=== PATIENT | male | born 1985 | race Caucasian/White ===

== ENCOUNTER 2019-10-09 09:50 | Emergency (ER) | payer OTHER, SELFPAY ==
[2019-10-09 09:56] VITALS: BP 130/81; PULSE 83; RESP 16; TEMP 36.7; O2SAT 96; BMI 26.7
--- NOTE | 2019-10-09 10:04 | DI.RAD.S_ITS ---
PROCEDURE: XR FOREARM RT 2V INDICATIONS: right arm injury a week ago, now with pain with movement TECHNIQUE: 2 views of the forearm were acquired. COMPARISON: None. FINDINGS: Bones: No fractures or dislocations. No suspicious bony lesions. Soft tissues: No suspicious soft tissue calcifications or masses. IMPRESSION: Unremarkable plain films. Dictated by: Camilo Lynn M.D. on 10/09/2019 at 9:19 Approved by: Camilo Lynn M.D. on 10/09/2019 at 9:19
--- NOTE | 2019-10-09 10:13 | ED_ITS ---
HPI - Extremity Injury (Upper) General Chief Complaint: Extremity Injury, Upper Stated Complaint: R forearm hurting Time Seen by Provider: 10/09/19 10:05 Source: patient Mode of arrival: Ambulatory Limitations: no limitations History of Present Illness HPI narrative: This is a 34-year-old male who comes in with complaint of right forearm pain. Patient states a week ago he was using a chainsaw cutting through large branch when the branch came back and hit him in the mid forearm. Patient states since then he has continued to have pain which just has not resolved. He particularly has pain with twisting at the wrist. He states that didn't bruise right away he feels like 1 is starting to develop. He hasn't had any redness, warmth or signs of infection. He states that is not have any other bony pain. Does not any pain in his hand wrist or elbow. He has full range of motion. He states that the branch was sick about softball size in width. He denies any other injuries. Denies any other past medical issues. Denies any allergies to medications. Related Data Allergies Allergy/AdvReac Type Severity Reaction Status Date / Time No Known Drug Allergies Allergy Verified 10/09/19 10:02 Review of Systems Review of Systems ROS Unobtainable: All systems reviewed & are unremarkable except as noted in HPI and below Patient History Social History Smoking Status: Never smoker Smoking Status: Never smoker alcohol intake frequency: holidays/special occasions only Substance Use Type: does not use Exam Narrative Exam Narrative: GENERAL: Alert and oriented x three, well-nourished, well- appearing male in mild distress. HEENT: Head normocephalic, atraumatic, EOMI, pupils reactive, face symmetric, moist mucous membranes NECK: Supple, full range of motion EXTREMITIES: Normal range of motion, no clubbing or edema. Neurovascularly intact. Mild tender over the mid shaft of right ulna. No deformity. No ecchymosis. No swelling. No warmth or heat. No abrasions or lacerations. Patient has no other bony tenderness noted. Full range of motion. 5/5 muscle strength. Labor Standards Director equal bilaterally. NEUROLOGICAL: Cranial nerves II through XII grossly intact. Moving all extremities SKIN: Warm, dry, no petechiae, no rashes or lesions. Initial Vital Signs Initial Vital Signs: Vital Signs Temperature 98.0 F 10/09/19 09:56 Pulse Rate 83 10/09/19 09:56 Respiratory Rate 16 10/09/19 09:56 Blood Pressure 130/81 10/09/19 09:56 Pulse Oximetry 96 10/09/19 09:56 Course Orders Ordered: ED Orders 10/09/19 10:04 XR forearm RT 2V Stat Vital Signs Vital signs: Vital Signs - 8 hr 10/09/19 09:56 Temperature 98.0 F Pulse Rate 83 Respiratory Rate 16 Blood Pressure 130/81 Pulse Oximetry 96 [facility] - Extremity Injury (Upper) Imaging Data forearm xray: Radiologist's Impression: [address] [address] XRay Report Signed Patient: Vahid Lakhani CMR#: [id number] : 1985Acct:[id number] Age/Sex: 34 / MDate of Service: 10/09/19 Loc: ED Accession Number: [id number] Procedure: XR forearm RT 2V Ordering Provider: Vibha Young D.O. PROCEDURE: XR FOREARM RT 2V INDICATIONS: right arm injury a week ago, now with pain with movement TECHNIQUE: 2 views of the forearm were acquired. COMPARISON: None. FINDINGS: Bones: No fractures or dislocations. No suspicious bony lesions. Soft tissues: No suspicious soft tissue calcifications or masses. IMPRESSION: Unremarkable plain films. Dictated by: Camilo Lynn M.D. on 10/09/2019 at 9:19 Approved by: Camilo Lynn M.D. on 10/09/2019 at 9:19 [facility] Narrative Medical decision making narrative: Fracture noted on imaging. Patient likely has contusion of the bone or similar. Discussed plan for follow-up with primary care if he does not continue to improve with time. NSAIDs, rest as needed and can return if any new or worsening symptoms. Discussed with patient signs/symptoms to watch for and reasons to return. Discharge Plan Departure Patient Disposition: Home Clinical Impression: Contusion of forearm Qualifiers: Encounter type: initial encounter Laterality: right Qualified Code(s): S50.11XA - Contusion of right forearm, initial encounter Discharge Date/Time: 10/09/19 10:45 Instructions: DI for Contusion Activity Restrictions/Additional Instructions: Follow-up with primary care if your symptoms do not resolve over the next 1-2 weeks. You may continue with Tylenol and/or ibuprofen as needed for pain. You may use ice and/or heat as needed to the affected area. Return to the emergency department for new swelling, new redness, numbness, weakness, loss of sensation, rapidly worsening pain or other new or concerning symptoms.
== END 2019-10-09 10:45 | disposition home or self-care (01) ==
PROVIDERS: Emergency Provider Emergency Medicine
DX: S50.11XA Contusion of right forearm, initial encounter (principal); W20.8XXA Other cause of strike by thrown, projected or falling object, initial encounter
CPT/HCPCS: 73090; 99283

== ENCOUNTER → 2019-11-15 08:56 | Outpatient (CLI) | payer OTHER, SELFPAY ==
[2019-11-15 09:38] LABS: Add Manual Diff / Slide Review NO; Basophils Absolute Auto 0 /uL (0-100); Basophils Percent Auto 0.3 % (0-2); Eosinophils Absolute Auto 700 /uL (0-450); Eosinophils Percent Auto 11.8 % (2-4); Hematocrit 41.4 % (41-53); Hemoglobin 14.4 g/dL (13.5-17.5); Lymphocytes Absolute Auto 1500 /uL (1100-4500); Mean Corpuscular HGB Conc 34.9 % (30-36); Mean Corpuscular Hemoglobin 29.7 PG (26-34); Mean Corpuscular Volume 85.2 fL (80-100); Monocytes Absolute Auto 400 /uL (0-900); Monocytes Percent Auto 7.2 % (3-14); Neutrophils Absolute Auto 3500 /uL (1500-7000); Neutrophils Percent Auto 56.7 % (50-75); Platelet Count 177 X10^3/uL (150-400); Red Blood Cell Count 4.85 X10^6/uL (4.5-5.9); Red Cell Distribution Width 13.3 % (11.6-14.8); White Blood Cell Count 6.2 X10^3/uL (4.5-11.0)
[2019-11-15 10:08] LABS: Alanine Aminotransferase 23 IU/L (<50); Albumin 4.1 g/dL (3.5-5.0); Albumin Globulin Ratio 1.6 (1.0-2.8); Alkaline Phosphatase 59 U/L (38-126); Aspartate Aminotransferase 27 IU/L (17-59); BUN Creatinine Ratio 17.8 (6-22); Bilirubin Total 0.4 mg/dL (0.2-1.3); Blood Urea Nitrogen 16 mg/dL (9-20); Carbon Dioxide 26 mmol/L (22-32); Chloride 107 mmol/L (98-107); Cholesterol 164 mg/dL (140-199); Estimated Glomerular Filt Rate > 60.0 mL/min (>60); Globulin 2.6 g/dL (1.7-4.1); Glucose 99 mg/dL (70-100); HDL Cholesterol 64 mg/dL (40-60); HEMOLYSIS < 15 (0-50); LDL Cholesterol Calculated 84 mg/dL (<100); Potassium 4.4 mmol/L (3.4-5.1); Sodium 141 mmol/L (137-145); Total Protein 6.7 g/dL (6.3-8.2); Triglycerides 80 mg/dL (35-150)
[2019-11-15 10:39] LABS: Thyroid Stimulating Hormone 2.23 uIU/mL (0.47-4.68)
== END ==
PROVIDERS: PCP Family Medicine; Referring Provider Family Medicine; Visit Provider Family Medicine
DX: Z00.00 Encounter for general adult medical examination without abnormal findings (principal)
CPT/HCPCS: 36415; 80053; 80061; 83036; 84443; 85025

== ENCOUNTER → 2021-08-31 11:35 | Outpatient (CLI) | payer OTHER, SELFPAY ==
[2021-08-31 12:09] LABS: COVID19 -Nasal RAPID Negative (Negative)
== END ==
PROVIDERS: PCP Family Medicine; Referring Provider Physician Assistant; Visit Provider Physician Assistant
DX: Z20.822 Contact with and (suspected) exposure to COVID-19 (principal)
CPT/HCPCS: 87635

== ENCOUNTER → 2021-10-11 09:14 | Outpatient (CLI) | payer OTHER, SELFPAY ==
--- NOTE | 2021-10-11 09:48 | DI.RAD.S_ITS ---
PROCEDURE: XR ANKLE RT MIN 3V INDICATIONS: right ankle pain TECHNIQUE: 3 views of the ankle were acquired. COMPARISON: None. FINDINGS: Bones: Well corticated osseous densities visualized adjacent to the lateral aspect of the distal fibular metaphysis as well as the distal fibular tip. Ankle mortise is normally aligned. No suspicious bony lesions. Soft tissues: No tibiotalar joint effusion. Achilles tendon appears normal. 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 Dictated by: Paul Tena [facility] Interpreted: Mike Luevano MD on 10/11/2021 at 10:07 Transcribed by: CARMEN on 10/11/2021 at 10:15 Approved by: Mike Luevano M.D. on 10/11/2021 at 11:05
[2021-10-11 10:16] LABS: Add Manual Diff / Slide Review NO; Basophils Absolute Auto 0 /uL (0-100); Basophils Percent Auto 0.4 % (0-2); Eosinophils Absolute Auto 400 /uL (0-450); Eosinophils Percent Auto 7.1 % (2-4); Hematocrit 45.2 % (41-53); Hemoglobin 15.6 g/dL (13.5-17.5); Lymphocytes Absolute Auto 1800 /uL (1100-4500); Lymphocytes Percent Auto 29.5 % (25-40); Mean Corpuscular HGB Conc 34.5 % (30-36); Mean Corpuscular Hemoglobin 29.4 PG (26-34); Mean Corpuscular Volume 85.4 fL (80-100); Monocytes Absolute Auto 400 /uL (0-900); Monocytes Percent Auto 6.3 % (3-14); Neutrophils Absolute Auto 3500 /uL (1500-7000); Neutrophils Percent Auto 56.7 % (50-75); Platelet Count 189 X10^3/uL (150-400); Red Blood Cell Count 5.29 X10^6/uL (4.5-5.9); Red Cell Distribution Width 13.5 % (11.6-14.8); White Blood Cell Count 6.2 X10^3/uL (4.5-11.0)
[2021-10-11 10:25] LABS: Alanine Aminotransferase 28 IU/L (<50); Albumin 4.5 g/dL (3.5-5.0); Albumin Globulin Ratio 1.6 (1.0-2.8); Alkaline Phosphatase 52 U/L (38-126); Aspartate Aminotransferase 30 IU/L (17-59); BUN Creatinine Ratio 18.5 (6-22); Bilirubin Total 0.5 mg/dL (0.2-1.3); Blood Urea Nitrogen 17 mg/dL (9-20); Carbon Dioxide 27 mmol/L (22-32); Chloride 108 mmol/L (98-107); Cholesterol 208 mg/dL (140-199); Estimated Glomerular Filt Rate > 60.0 mL/min (>60); Globulin 2.9 g/dL (1.7-4.1); Glucose 103 mg/dL (70-100); HDL Cholesterol 73 mg/dL (40-60); HEMOLYSIS < 15 (0-50); LDL Cholesterol Calculated 107 mg/dL (<100); Potassium 3.9 mmol/L (3.4-5.1); Sodium 140 mmol/L (137-145); Total Protein 7.4 g/dL (6.3-8.2); Triglycerides 142 mg/dL (35-150)
[2021-10-11 10:56] LABS: TSH w/ Reflex to FT4 2.57 uIU/mL (0.47-4.68)
[2021-10-18 15:37] LABS: Percent Free Testosterone 4.47 % (1.50-4.20); Testosterone Total 375.8 ng/dL (264.0-916.0)
== END ==
PROVIDERS: PCP Family Medicine; Referring Provider Family Medicine; Visit Provider Family Medicine
DX: I10 Essential (primary) hypertension (principal); Z00.00 Encounter for general adult medical examination without abnormal findings; G89.29 Other chronic pain; M25.571 Pain in right ankle and joints of right foot
CPT/HCPCS: 36415; 73610; 80053; 80061; 84402; 84403; 84443; 85025

== ENCOUNTER 2021-11-09 08:15 | Outpatient (RCR) | payer OTHER, SELFPAY ==
--- NOTE | 2021-10-21 17:07 | PT.OIE ---
Current Diagnoses Pain in right ankle and joints of right foot (10/21/21) Abnormal posture (10/21/21) Past Medical History (Last Reviewed 09/27/21 @ 17:31 by Marc Hagen DO) Allergic rhinitis Ankle pain (~2001) Chicken pox (~1988) Hypertension Right ankle pain Well adult Well adult exam Rinard teeth removed (~1999) Past Surgical History (This Medical Record has been edited. Action required.) Anesthesia Broken ankle (~2001) Rinard teeth removed (~1999) Visit Care Team Role Provider Type Marc Hagen DO Attending Provider Physician Family Provider Primary Care Provider Referring Provider Specialty: [facility] Address: [address] [place] [address] Email: [email or web address] Physical Therapy Initial Evaluation PT-OP-A Visit Information Start: 10/19/21 18:46 Freq: Status: Active Protocol: Document 10/21/21 09:03 LRN (Rec: 10/21/21 16:30 LRN [id number]) Out-Patient Physical Therapy Visit Information Visit Information Visit Type Initial Evaluation Visit Start Time 09:03 Visit Stop Time 09:53 Total Visit Minutes 50 Visit Number 1 Evaluation Information Evaluation Date 10/21/21 Precautions Precautions Chronic R ankle pain from fx 2001. Medication controlled anxiety. PT-OP-B Current Condition Start: 10/19/21 18:46 Freq: Status: Active Protocol: Document 10/21/21 09:03 LRN (Rec: 10/21/21 16:30 LRN [id number]) Current Condition History of Current Condition Onset Date 2006 Current Complaints Chronic constant R ankle pain limiting function History of Current Condition Initial fx of R Talus and Lateral Malleolus in 2001 with 3 total pins with what sounds like Open reduction and external fixation. Pt had pins removed but didn't feel he had return to prior painfree function. In 2005 he had bone spurs removed with good relief until return of pain in 2006. He has had chronic R ankle pain, but is starting to limit his ability to squat and walk and he is now reporting recent onset of L ankle pain. He has had 7 days of limiting pain after squatting activity. Prior Treatments and Tests Xray 10/11/21: Ankle mortise normally aligned. 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 2005 Bone spurs removed in R ankle. Injections of collagen and sugar mix that the pt states didn't make a big difference. Future Testing and Treatments Planned None. Treatment Goals Patient/Caregiver Goals Pt goal: to decrease pain (3/ 10) with gait and not have lingering pain with squatting. Pt agreeable to a goal of no pain at rest and being placed on a home exercise program. Prior Functional Status Baseline Function- ADL's Independent Baseline Function- Mobility Independent Baseline Function- Work/School Pain with standing on boat on sea. Baseline Function- Recreation/Hobbies Not a runner. 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 Able to crawl around boats to assess. Current Functional Impairments (Reported) Functional Limitations- ADL's Limited in ability to squat Functional Limitations- Mobility/Gait Decreased walking tolerance Functional Limitations- Work/School Limited with ability to squat and crawl around boats due to R ankle pain. R ankle pain constant. 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 and no definite acute fracture PT-OP-C Subjective Start: 10/19/21 18:46 Freq: Status: Active Protocol: Document 10/21/21 09:03 LRN (Rec: 10/21/21 16:30 LRN [id number]) Patient Questionnaires Foot & Ankle Ability Measure- ADL and Sports FAAM-ADL Score 49 FAAM-ADL Impairment 40 to 59% Impaired (Score 33- 49) FAAM-Sport Score 12 FAAM-Sport Impairment 40 to 59% Impaired (Score 12- 18) Lower Extremity Functional Scale LEFS Score 34 LEFS Impairment 40 to 59% Impaired (Score 32- 47) OP-PT Pain Assessment Pain Assessment Grid Paper Pain Assessment Grid Completed Yes Location R ankle Pain Location Details Around R ankle at level of Malleolus Intensity 7 Scale Used Numeric (0 - 10) Description Aching Frequency Constant Pain Aggravating Factors Activity,Walking Other Pain Aggravating Factors Squatting PT-OP-D Balance Start: 10/19/21 18:46 Freq: Status: Active Protocol: Document 10/21/21 09:03 LRN (Rec: 10/21/21 16:30 LRN [id number]) Balance Tests Single Limb Standing Single Limb- Right 60 (hands across chest, barefoot) Single Limb- Left 40 (hands across chest, barefoot) PT-OP-G Mobility & Gait Start: 10/19/21 18:46 Freq: Status: Active Protocol: Document 10/21/21 09:03 LRN (Rec: 10/21/21 16:30 LRN [id number]) OP Gait Assessment Gait Gait Assistance Required: Independent Able to Maintain Weight Bearing Status Yes During Gait Assistive Devices Assistive Device None PT-OP-H Neuro Start: 10/19/21 18:46 Freq: Status: Active Protocol: Document 10/21/21 09:03 LRN (Rec: 10/21/21 16:30 LRN [id number]) Sensation Evaluation Gross Sensation Gross Sensation WNL Muscle Tone Tone Assessment R ankle dorsiflexors Flexor Tone Description Moderate Hypertonicity PT-OP-J Posture/Palpation/Skin Start: 10/19/21 18:46 Freq: Status: Active Protocol: Document 10/21/21 09:03 LRN (Rec: 10/21/21 16:30 LRN [id number]) Posture Evaluation Position Standing Head/C-Spine Posture Forward Head L-Spine Posture Increased Lordosis Pelvis Posture (L) Rotated Anterior Knee Posture (R) Genu Recurvatum Ankle/Foot Posture (R) Dorsiflexed,(L) Pronated,( R) Pronated,(L) Calcaneal Inversion,(R) Calcaneal Inversion Foot Arch (R) Medium Arch,(L) Low Arch Comments Posture Comments Well developed calves bilaterally. Moderately larger R ankle jt compared to L ankle. PT-OP-K Range of Motion Start: 10/19/21 18:46 Freq: Status: Active Protocol: Document 10/21/21 09:03 LRN (Rec: 10/21/21 16:30 LRN [id number]) Knee Goniometric Range of Motion Knee Right Knee ROM WFL No Patient Position Supine Hyper-Extension Active 4 Left Knee ROM WFL Yes Patient Position Supine Hyper-Extension Active 2 Ankle and Foot Goniometric Range of Motion Ankle and Foot Right Active Ankle/Foot ROM WFL No Testing Position Supine Dorsiflexion with Knee Extended 7 Plantarflexion 66 Inversion 20 Eversion 17 Left Active Ankle/Foot ROM WFL Yes Testing Position Supine Dorsiflexion with Knee Extended 5 Plantarflexion 65 Inversion 20 Eversion 20 PT-OP-L Special Tests Start: 10/19/21 18:46 Freq: Status: Active Protocol: Document 10/21/21 09:03 LRN (Rec: 10/21/21 16:38 LRN [id number]) Special Tests Foot/Ankle Special Tests Anterior Draw Test Results R ankle: Negative for pain Comments Hyper mobility noted. PT-OP-M Strength Start: 10/19/21 18:46 Freq: Status: Active Protocol: Document 10/21/21 09:03 LRN (Rec: 10/21/21 16:30 LRN [id number]) Knee Strength Knee Manual Muscle Testing Right Flexion (S2) 5 Normal Extension (L3) 5 Normal Comments R knee pops with resisted knee extension. Left Flexion (S2) 5 Normal Extension (L3) 5 Normal Ankle/Foot Strength Ankle and Foot Manual Muscle Testing Right Dorsiflexion (L4) 5 Normal Plantarflexion (S1) 5 Normal Inversion 5 Normal Eversion (S1) 5 Normal Comments Pt demonstrates popping at R foot with stretch into inversion at ~Cuboid/ metatarsal joint. Left Dorsiflexion (L4) 5 Normal Plantarflexion (S1) 5 Normal Inversion 5 Normal Eversion (S1) 5 Normal PT-OP-Q Treatments Start: 10/19/21 18:46 Freq: Status: Active Protocol: Document 10/21/21 09:03 LRN (Rec: 10/21/21 16:38 LRN [id number]) Self-Care/Home Management Treatment Education Patient Education Home Exercise Program,Pain Management Other Education Discussed results of evaluation, goals, and plan of care (POC). Pt agreeable to goals and POC. Educated pt in pain management technique with description of RICE technique. Briefly described/educated pt in fig 8 wrap and discussed use of ice at home and at work. Activities Self-Care/Home Management Activities Issued Lev 4 TBand for R ankle distraction to be used for brief periods to relieve pain only. Pt was shown and given verbal instruction in how to use TBand around the ankle to apply traction, with precaution warning to use for brief period due to good mobility at ankle. PT-OP-T Assessment and Plan Start: 10/19/21 18:46 Freq: Status: Active Protocol: Document 10/21/21 09:03 LRN (Rec: 10/21/21 16:30 LRN [id number]) Physical Therapy Assessment Rehab Potential Rehabilitation Potential Fair Evaluation Complexity Number of Personal Factors/Comorbidities 1-2 Number of Body Systems Impaired 4 or More Clinical Presentation at Evaluation Evolving Impairments Impairments Activity Tolerance,Gait,Pain, Posture,ROM,Soft Tissue Mobility,Tone Goals Three Impairment Decreased function (difficulty squatting and walking due to pain) Impairment Pain with squatting lingering for a week with pain 7/10. Pain with walking rated 7/10. Ankle AROM )degrees): Short Term Goal (STG) Normalize R ankle AROM (in degrees: EV: 17 R, 20 L; DF 7 R, 5 L, PF 66 R, 65 L) STG Duration 12/06/21 Nursing Home Goal (LTG) Stabilize R ankle with improved ability to squat and walk with pain no greater than 3/10. LTG Duration 12/20/21 Two Impairment R ankle pain (3-7/10) Short Term Goal (STG) Pt will have periods of no pain. STG Duration 12/06/21 Nursing Home Goal (LTG) Decrease R ankle pain to no greater than 3/10. LTG Duration 12/20/21 One Impairment Lacks appropriate self care HEP Short Term Goal (STG) Pt educated in self care pain management techniques ( contrast baths, ice, compression wrapping) STG Duration 10/29/21 Land Economist Goal (LTG) Pt will be independent with a self care HEP. LTG Duration 12/20/21 Assessment Summary Assessment Pt presents with mechanical and soft tissue dysfunction of the R ankle with postural changes affecting the ankle/ knee/hip jts with changes in lumbar spine (lordosis). The pt demonstrates flattening of the plantar arches and would benefit from wearing arch supports. I will suggest over the counter supports, and if helpful, in the future the pt may need more custom fit orthotics. The pt demonstrates some hypermobility at the R ankle and may be overstretching the ankle causing more pain. The pt's R ankle is moderately larger than the L side, possibly due to mechanical changes from his prior fracture & surgical history. He has increased tone of his ankle dorsiflexors, possible due to response of his chronic pain. The pt has had chronic pain for quite sometime; therefore he is expected to need and extended rehabilitation time. The pt's rehabilitation may be more focused on progressing a home program due to financial concerns. The pt will benefit from skilled physical therapy to work towards achieving the above stated goals. Physical Therapy Plan Frequency and Duration Frequency of Treatment 2x/Week Plan of Care Start Date 10/21/21 Plan of Care End Date 12/20/21 Therapeutic Interventions Therapeutic Interventions Gait Training,Home Exercise Program,Joint Mobilizations, Manual Therapy,Neuromuscular Re-education,Patient/Caregiver Education,Self-Care/Home Management,Soft Tissue Mobilization,Taping, Therapeutic Exercises Modalities Cold Pack/Ice Massage,Hot Packs,Iontophoresis,Ultrasound Other Therapeutic Interventions Iontophoresis with 4mg/mL Dexamethasone with Sodium Phosphate Next Visit Focus/Plan Next Note Type Treatment Note Next Visit Plan Assess gait, assess R ankle jt mobility of talocalcaneal jt and Tarsals. Discuss focus of treatment on self nursing home program due to insurance limits of deductible /pt financial concerns. During US to R inferior lateral/? medial malleolus; briefly review pt education of pain management (issue handout of RICE & contrast bath treatment) and use of T- Band for Mortise jt distraction for pain relief. STM: R anterior tib and possible AUGUSTIN assessment & stretching. Short foot flexor strengthening and discuss use of plantar arch supports ( superfeet). Stretch for L ankle DF/PF & R ankle EV, (ankle IV norm is 35 deg's, pt has 20 deg's bilaterally, ?normal). Strengthening: R ankle EV and all positions DF/PF. JMT for R ankle EV (med> lateral calcaneal glide). Standing posture training ( decr lordosis, decr hyper ext of R knee).
--- NOTE | 2021-10-25 15:32 | PT-OP ANOTE ---
Pt notified of missed appointment and informed of his next scheduled appt 10/27/21 @ [id number] with MADELYN Ward. Pt informed of missed therapy charge rule.
--- NOTE | 2021-10-27 17:45 | PT.OTN ---
Current Diagnoses Pain in right ankle and joints of right foot (10/27/21) Abnormal posture (10/27/21) Physical Therapy Treatment Note PT-OP-A Visit Information Start: 10/19/21 18:46 Freq: Status: Active Protocol: Document 10/27/21 09:23 MA (Rec: 10/27/21 10:15 MA [id number]) Out-Patient Physical Therapy Visit Information Visit Information Visit Type Treatment Note Visit Start Time 09:28 Visit Stop Time 10:10 Total Visit Minutes 42 Visit Number 2 Number of [employer] Visits 1 Precautions Precautions Chronic R ankle pain from fx 2001. Medication controlled anxiety. PT-OP-B Current Condition Start: 10/19/21 18:46 Freq: Status: Active Protocol: Document 10/21/21 09:03 LRN (Rec: 10/21/21 16:30 LRN [id number]) Current Condition History of Current Condition Onset Date 2006 Current Complaints Chronic constant R ankle pain limiting function History of Current Condition Initial fx of R Talus and Lateral Malleolus in 2001 with 3 total pins with what sounds like Open reduction and external fixation. Pt had pins removed but didn't feel he had return to prior painfree function. In 2005 he had bone spurs removed with good relief until return of pain in 2006. He has had chronic R ankle pain, but is starting to limit his ability to squat and walk and he is now reporting recent onset of L ankle pain. He has had 7 days of limiting pain after squatting activity. Prior Treatments and Tests Xray 10/11/21: Ankle mortise normally aligned. 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 2005 Bone spurs removed in R ankle. Injections of collagen and sugar mix that the pt states didn't make a big difference. Future Testing and Treatments Planned None. Treatment Goals Patient/Caregiver Goals Pt goal: to decrease pain (3/ 10) with gait and not have lingering pain with squatting. Pt agreeable to a goal of no pain at rest and being placed on a home exercise program. Prior Functional Status Baseline Function- ADL's Independent Baseline Function- Mobility Independent Baseline Function- Work/School Pain [place]. Baseline Function- Recreation/Hobbies Not a runner. 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 Able to crawl around boats to assess. Current Functional Impairments (Reported) Functional Limitations- ADL's Limited in ability to squat Functional Limitations- Mobility/Gait Decreased walking tolerance Functional Limitations- Work/School Limited with ability to squat and crawl around boats due to R ankle pain. R ankle pain constant. 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 and no definite acute fracture PT-OP-C Subjective Start: 10/19/21 18:46 Freq: Status: Active Protocol: Document 10/27/21 09:23 MA (Rec: 10/27/21 10:15 MA [id number]) OP-PT Subjective Patient Comments Patient Comments The therapist gave me a stretchy band to point use for pointing my foot and turning it PT-OP-D Balance Start: 10/19/21 18:46 Freq: Status: Active Protocol: Document 10/21/21 09:03 LRN (Rec: 10/21/21 16:30 LRN [id number]) Balance Tests Single Limb Standing Single Limb- Right 60 (hands across chest, barefoot) Single Limb- Left 40 (hands across chest, barefoot) PT-OP-G Mobility & Gait Start: 10/19/21 18:46 Freq: Status: Active Protocol: Document 10/21/21 09:03 LRN (Rec: 10/21/21 16:30 LRN [id number]) OP Gait Assessment Gait Gait Assistance Required: Independent Able to Maintain Weight Bearing Status Yes During Gait Assistive Devices Assistive Device None PT-OP-H Neuro Start: 10/19/21 18:46 Freq: Status: Active Protocol: Document 10/21/21 09:03 LRN (Rec: 10/21/21 16:30 LRN [id number]) Sensation Evaluation Gross Sensation Gross Sensation WNL Muscle Tone Tone Assessment R ankle dorsiflexors Flexor Tone Description Moderate Hypertonicity PT-OP-J Posture/Palpation/Skin Start: 10/19/21 18:46 Freq: Status: Active Protocol: Document 10/21/21 09:03 LRN (Rec: 10/21/21 16:30 LRN [id number]) Posture Evaluation Position Standing Head/C-Spine Posture Forward Head L-Spine Posture Increased Lordosis Pelvis Posture (L) Rotated Anterior Knee Posture (R) Genu Recurvatum Ankle/Foot Posture (R) Dorsiflexed,(L) Pronated,( R) Pronated,(L) Calcaneal Inversion,(R) Calcaneal Inversion Foot Arch (R) Medium Arch,(L) Low Arch Comments Posture Comments Well developed calves bilaterally. Moderately larger R ankle jt compared to L ankle. PT-OP-K Range of Motion Start: 10/19/21 18:46 Freq: Status: Active Protocol: Document 10/21/21 09:03 LRN (Rec: 10/21/21 16:30 LRN [id number]) Knee Goniometric Range of Motion Knee Right Knee ROM WFL No Patient Position Supine Hyper-Extension Active 4 Left Knee ROM WFL Yes Patient Position Supine Hyper-Extension Active 2 Ankle and Foot Goniometric Range of Motion Ankle and Foot Right Active Ankle/Foot ROM WFL No Testing Position Supine Dorsiflexion with Knee Extended 7 Plantarflexion 66 Inversion 20 Eversion 17 Left Active Ankle/Foot ROM WFL Yes Testing Position Supine Dorsiflexion with Knee Extended 5 Plantarflexion 65 Inversion 20 Eversion 20 PT-OP-L Special Tests Start: 10/19/21 18:46 Freq: Status: Active Protocol: Document 10/21/21 09:03 LRN (Rec: 10/21/21 16:38 LRN [id number]) Special Tests Foot/Ankle Special Tests Anterior Draw Test Results R ankle: Negative for pain Comments Hyper mobility noted. PT-OP-M Strength Start: 10/19/21 18:46 Freq: Status: Active Protocol: Document 10/21/21 09:03 LRN (Rec: 10/21/21 16:30 LRN [id number]) Knee Strength Knee Manual Muscle Testing Right Flexion (S2) 5 Normal Extension (L3) 5 Normal Comments R knee pops with resisted knee extension. Left Flexion (S2) 5 Normal Extension (L3) 5 Normal Ankle/Foot Strength Ankle and Foot Manual Muscle Testing Right Dorsiflexion (L4) 5 Normal Plantarflexion (S1) 5 Normal Inversion 5 Normal Eversion (S1) 5 Normal Comments Pt demonstrates popping at R foot with stretch into inversion at ~Cuboid/ metatarsal joint. Left Dorsiflexion (L4) 5 Normal Plantarflexion (S1) 5 Normal Inversion 5 Normal Eversion (S1) 5 Normal PT-OP-Q Treatments Start: 10/19/21 18:46 Freq: Status: Active Protocol: Document 10/27/21 09:23 MA (Rec: 10/27/21 10:15 MA [id number]) Therapeutic Exercises Sitting Exercises IV/EV Sitting Exercise Name Inversion/eversion Side bilateral Resistance lvl 4 TB Reps/Minutes x15 ea Comments added to HEP PF/DF Sitting Exercise Name platar flexion/dorsifelxion Side bilateral Resistance lvl 4 TB Reps/Minutes x15 ea Comments added to HEP Standing Exercises Arch Lifts Standing Exercise Name 1. seated towel scrunch 2. arch lifts in standing Side right Reps/Minutes 5' Comments added to HEP Heel raises Side bilateral Reps/Minutes x10 Gait Training Gait Activity Gait Description Working on push off and step- thru Surface solid Comments pt walks with increased pronation and increased ER through RLE- will further assess next session Manual Therapy Treatment Soft Tissue Mobilization Peroneals Body Location R inf lat malleolus Mobilization Type Myofascial Release Intensity/Depth Moderate Body Position Prone Joint Mobilizations Talocrural Direction A/P Grade I Reps/Duration 2' Self-Care/Home Management Treatment Education Patient Education Home Exercise Program,Pain Management Other Education Added to HEP: resisted IV/EV & PF/DF, arch lifts standing and towel scrunches in seated. Dispensed contrast bath handout for pain management. Discussed arch supports in work shoes which currently have flat soles with no arch support. PT-OP-T Assessment and Plan Start: 10/19/21 18:46 Freq: Status: Active Protocol: Document 10/27/21 09:23 MA (Rec: 10/27/21 10:15 MA [id number]) Physical Therapy Assessment Goals Three Impairment Decreased function (difficulty squatting and walking due to pain) Impairment Pain with squatting lingering for a week with pain 7/10. Pain with walking rated 7/10. Ankle AROM )degrees): Short Term Goal (STG) Normalize R ankle AROM (in degrees: EV: 17 R, 20 L; DF 7 R, 5 L, PF 66 R, 65 L) STG Duration 12/06/21 Shelter Goal (LTG) Stabilize R ankle with improved ability to squat and walk with pain no greater than 3/10. LTG Duration 12/20/21 Two Impairment R ankle pain (3-7/10) Short Term Goal (STG) Pt will have periods of no pain. STG Duration 12/06/21 Mud Trucker Goal (LTG) Decrease R ankle pain to no greater than 3/10. LTG Duration 12/20/21 One Impairment Lacks appropriate self care HEP Short Term Goal (STG) Pt educated in self care pain management techniques ( contrast baths, ice, compression wrapping) STG Duration 10/29/21 Shelter Goal (LTG) Pt will be independent with a self care HEP. LTG Duration 12/20/21 Assessment Summary Assessment Pt walks with increased pronation and increased ER through RLE as compared to LLE , likely due to compensation from prior ankle fx. Worked on push off and progressed to step-through during gait. Added resisted PF, DF, IV, & EV to HEP as well as standing arch lifts and towel scrunches to improve eversion seen in standing. Pt wears flat soled shoes to work but states he does have arch supports in his work out shoes. Therapist encouraged pt to add insoles with arch support to work shoes or consider switching to a shoe with improved arch support. Pt will bring in his current insoles next session for PT to evaluate. Dispensed handout for contrast bath for improving ankle pain. Pt is not tender to palpation along anterior tibialis but does feel discomfort along peroneus longus and brevis on lateral ankle, likely due to walking with increased pronation. Pt feels popping anytime he is moving into active PF on RLE. Discussed trying more joint mobs next session to improve popping felt at [facility]. Physical Therapy Plan Frequency and Duration Frequency of Treatment 2x/Week Plan of Care Start Date 10/21/21 Plan of Care End Date 12/20/21 Therapeutic Interventions Therapeutic Interventions Gait Training,Home Exercise Program,Joint Mobilizations, Manual Therapy,Neuromuscular Re-education,Patient/Caregiver Education,Self-Care/Home Management,Soft Tissue Mobilization,Taping, Therapeutic Exercises Modalities Cold Pack/Ice Massage,Hot Packs,Iontophoresis,Ultrasound Other Therapeutic Interventions Iontophoresis with 4mg/mL Dexamethasone with Sodium Phosphate Next Visit Focus/Plan Next Note Type Treatment Note Next Visit Plan Assess pt's current insoles and discuss possibility with superfeet if not Assess R ankle jt mobility of talocalcaneal jt and Tarsals. Review HEP: IV/EV/PF/DF, arch lifts STM to peroneals Discuss focus of treatment on self half-way program due to insurance limits of deductible /pt financial concerns. During US to R inferior lateral/? medial malleolus; STM: R peroneals and possible AUGUSTIN assessment. Stretch for L ankle DF/PF & R ankle EV, (ankle IV norm is 35 deg's, pt has 20 deg's bilaterally, ?normal). JMT for R ankle EV (med> lateral calcaneal glide). Standing posture training ( decr lordosis, decr hyper ext of R knee).
--- NOTE | 2021-11-02 09:31 | PT.OTN ---
Current Diagnoses Pain in right ankle and joints of right foot (11/02/21) Abnormal posture (11/02/21) Physical Therapy Treatment Note PT-OP-A Visit Information Start: 10/19/21 18:46 Freq: Status: Active Protocol: Document 11/02/21 08:15 LRN (Rec: 11/02/21 09:31 LRN [id number]) Out-Patient Physical Therapy Visit Information Visit Information Visit Type Treatment Note Visit Start Time 08:16 Visit Stop Time 09:00 Total Visit Minutes 44 Visit Number 3 Evaluation Information Evaluation Date 10/21/21 Precautions Precautions Chronic R ankle pain from fx 2001. Medication controlled anxiety. PT-OP-B Current Condition Start: 10/19/21 18:46 Freq: Status: Active Protocol: Document 10/21/21 09:03 LRN (Rec: 10/21/21 16:30 LRN [id number]) Current Condition History of Current Condition Onset Date 2006 Current Complaints Chronic constant R ankle pain limiting function History of Current Condition Initial fx of R Talus and Lateral Malleolus in 2001 with 3 total pins with what sounds like Open reduction and external fixation. Pt had pins removed but didn't feel he had return to prior painfree function. In 2005 he had bone spurs removed with good relief until return of pain in 2006. He has had chronic R ankle pain, but is starting to limit his ability to squat and walk and he is now reporting recent onset of L ankle pain. He has had 7 days of limiting pain after squatting activity. Prior Treatments and Tests Xray 10/11/21: Ankle mortise normally aligned. 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 2005 Bone spurs removed in R ankle. Injections of collagen and sugar mix that the pt states didn't make a big difference. Future Testing and Treatments Planned None. Treatment Goals Patient/Caregiver Goals Pt goal: to decrease pain (3/ 10) with gait and not have lingering pain with squatting. Pt agreeable to a goal of no pain at rest and being placed on a home exercise program. Prior Functional Status Baseline Function- ADL's Independent Baseline Function- Mobility Independent Baseline Function- Work/School Pain with standing [place]. Baseline Function- Recreation/Hobbies Not a runner. 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 Able to crawl around boats to assess. Current Functional Impairments (Reported) Functional Limitations- ADL's Limited in ability to squat Functional Limitations- Mobility/Gait Decreased walking tolerance Functional Limitations- Work/School Limited with ability to squat and crawl around boats due to R ankle pain. R ankle pain constant. 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 Has been doing ankle ex's and standing arch lifts. m PT-OP-D Balance Start: 10/19/21 18:46 Freq: Status: Active Protocol: Document 10/21/21 09:03 LRN (Rec: 10/21/21 16:30 LRN [id number]) Balance Tests Single Limb Standing Single Limb- Right 60 (hands across chest, barefoot) Single Limb- Left 40 (hands across chest, barefoot) PT-OP-G Mobility & Gait Start: 10/19/21 18:46 Freq: Status: Active Protocol: Document 10/21/21 09:03 LRN (Rec: 10/21/21 16:30 LRN [id number]) OP Gait Assessment Gait Gait Assistance Required: Independent Able to Maintain Weight Bearing Status Yes During Gait Assistive Devices Assistive Device None PT-OP-H Neuro Start: 10/19/21 18:46 Freq: Status: Active Protocol: Document 10/21/21 09:03 LRN (Rec: 10/21/21 16:30 LRN [id number]) Sensation Evaluation Gross Sensation Gross Sensation WNL Muscle Tone Tone Assessment R ankle dorsiflexors Flexor Tone Description Moderate Hypertonicity PT-OP-J Posture/Palpation/Skin Start: 01/11/22 18:46 Freq: Status: Active Protocol: Document 10/21/21 09:03 LRN (Rec: 10/21/21 16:30 LRN [id number]) Posture Evaluation Position Standing Head/C-Spine Posture Forward Head L-Spine Posture Increased Lordosis Pelvis Posture (L) Rotated Anterior Knee Posture (R) Genu Recurvatum Ankle/Foot Posture (R) Dorsiflexed,(L) Pronated,( R) Pronated,(L) Calcaneal Inversion,(R) Calcaneal Inversion Foot Arch (R) Medium Arch,(L) Low Arch Comments Posture Comments Well developed calves bilaterally. Moderately larger R ankle jt compared to L ankle. PT-OP-K Range of Motion Start: 10/19/21 18:46 Freq: Status: Active Protocol: Document 10/21/21 09:03 LRN (Rec: 10/21/21 16:30 LRN [id number]) Knee Goniometric Range of Motion Knee Right Knee ROM WFL No Patient Position Supine Hyper-Extension Active 4 Left Knee ROM WFL Yes Patient Position Supine Hyper-Extension Active 2 Ankle and Foot Goniometric Range of Motion Ankle and Foot Right Active Ankle/Foot ROM WFL No Testing Position Supine Dorsiflexion with Knee Extended 7 Plantarflexion 66 Inversion 20 Eversion 17 Left Active Ankle/Foot ROM WFL Yes Testing Position Supine Dorsiflexion with Knee Extended 5 Plantarflexion 65 Inversion 20 Eversion 20 PT-OP-L Special Tests Start: 10/19/21 18:46 Freq: Status: Active Protocol: Document 10/21/21 09:03 LRN (Rec: 10/21/21 16:38 LRN [id number]) Special Tests Foot/Ankle Special Tests Anterior Draw Test Results R ankle: Negative for pain Comments Hyper mobility noted. PT-OP-M Strength Start: 10/19/21 18:46 Freq: Status: Active Protocol: Document 10/21/21 09:03 LRN (Rec: 10/21/21 16:30 LRN [id number]) Knee Strength Knee Manual Muscle Testing Right Flexion (S2) 5 Normal Extension (L3) 5 Normal Comments R knee pops with resisted knee extension. Left Flexion (S2) 5 Normal Extension (L3) 5 Normal Ankle/Foot Strength Ankle and Foot Manual Muscle Testing Right Dorsiflexion (L4) 5 Normal Plantarflexion (S1) 5 Normal Inversion 5 Normal Eversion (S1) 5 Normal Comments Pt demonstrates popping at R foot with stretch into inversion at ~Cuboid/ metatarsal joint. Left Dorsiflexion (L4) 5 Normal Plantarflexion (S1) 5 Normal Inversion 5 Normal Eversion (S1) 5 Normal PT-OP-Q Treatments Start: 10/19/21 18:46 Freq: Status: Active Protocol: Document 11/02/21 08:15 LRN (Rec: 11/02/21 09:31 LRN [id number]) Cardio Equipment Treadmill Duration (Minutes) 9 Speed 1.3-1.0 Incline 20 deg with bkwd walk Other Walk: bkwd, sideway, fwd, 2' each, extra time to determine max cal speed Therapeutic Exercises Sitting Exercises IV/EV Sitting Exercise Name Inversion/eversion Side bilateral Resistance lvl 4 TB Reps/Minutes x15 ea Comments I/S pt in other method of anchoring band w/opposite foot PF/DF Sitting Exercise Name platar flexion/dorsifelxion Side bilateral Resistance lvl 4 TB Reps/Minutes x15 ea Comments I/S pt in other method of anchoring band w/opposite foot Standing Exercises Soleus stretch Standing Exercise Name Standing and squat stretch Side bilateral Reps/Minutes 5' Gastroc stretch Standing Exercise Name Gastroc stretch, single and double Side bilateral Reps/Minutes 3' Arch Lifts Standing Exercise Name Quick & Long hold (10) Side right Reps/Minutes 10x uick, 5x Long hold Manual Therapy Treatment Soft Tissue Mobilization Peroneals Body Location R lower leg Mobilization Type Myofascial Release Intensity/Depth Moderate Body Position Supine Joint Mobilizations R Talocalcaneal Joint R ankle Direction lateral & medial Reps/Duration 2' Comments Increased mobility compared to left. Talocrural Joint R ankle Direction A/P Grade I Reps/Duration 2' Comments Increased mobility compared to left. Self-Care/Home Management Treatment Education Other Education Discussed & showed pt Superfeet insoles and trial of different sizes for fit. Pt felt size F would work and chose Copper type. PT-OP-T Assessment and Plan Start: 10/19/21 18:46 Freq: Status: Active Protocol: Document 11/02/21 08:15 LRN (Rec: 11/02/21 09:31 LRN [id number]) Physical Therapy Assessment Goals Three Impairment Decreased function (difficulty squatting and walking due to pain) Impairment Pain with squatting lingering for a week with pain 7/10. Pain with walking rated 7/10. Ankle AROM )degrees): Short Term Goal (STG) Normalize R ankle AROM (in degrees: EV: 17 R, 20 L; DF 7 R, 5 L, PF 66 R, 65 L) STG Duration 12/06/21 Plaster Tender Goal (LTG) Stabilize R ankle with improved ability to squat and walk with pain no greater than 3/10. LTG Duration 12/20/21 Two Impairment R ankle pain (3-7/10) Short Term Goal (STG) Pt will have periods of no pain. STG Duration 12/06/21 [facility] Goal (LTG) Decrease R ankle pain to no greater than 3/10. LTG Duration 12/20/21 One Impairment Lacks appropriate self care HEP Short Term Goal (STG) Pt educated in self care pain management techniques ( contrast baths, ice, compression wrapping) STG Duration 10/29/21 [facility] Goal (LTG) Pt will be independent with a self care HEP. LTG Duration 12/20/21 Assessment Summary Assessment Pt to research his insurance coverage and decide amount of therapy to continue. [employer] arch support provided good arch support; therefore pt plans to order online. Pt R lateral ankle pain is with bkwd walking on TM and with ankle IV strengthening, appears to be due to decreased ankle stability and mild decrease in EV AROM. Still noted, pt walks with increased pronation and increased ER through RLE as compared to LLE, possibly due to compensation and/or flattened arches. Physical Therapy Plan Frequency and Duration Frequency of Treatment 2x/Week Plan of Care Start Date 10/21/21 Plan of Care End Date 12/20/21 Next Visit Focus/Plan Next Note Type Treatment Note Next Visit Plan Assess R ankle EV AROM (to L ankle) & Issue handout for HEP : IV/EV/DF TBand ex using opposite foot to stabilize band if pt needs. Strengthen R ankle and improve ROM of R ankle EV, and L ankle PF/DF ROM (ankle IV norm is 35 deg's, pt has 20 deg's bilaterally, ?normal). Consider Guashon scaping of R lateral ankle to promote healing/stabilization, putting hold on US. US if needed and if not doing Guashon technique. Discuss focus of treatment on self [facility] program due to insurance limits of deductible /pt financial concerns. STM: possible AUGUSTIN assessment. Standing posture training ( decr lordosis, decr hyper ext of R knee).
--- NOTE | 2021-11-04 17:26 | PT.OTN ---
Current Diagnoses Pain in right ankle and joints of right foot (11/04/21) Abnormal posture (11/04/21) Physical Therapy Treatment Note PT-OP-A Visit Information Start: 10/19/21 18:46 Freq: Status: Active Protocol: Document 11/04/21 08:20 LRN (Rec: 11/04/21 09:04 LRN [id number]) Out-Patient Physical Therapy Visit Information Visit Information Visit Type Treatment Note Visit Start Time 08:20 Visit Stop Time 09:01 Total Visit Minutes 41 Visit Number 4 Evaluation Information Evaluation Date 10/21/21 Precautions Precautions Chronic R ankle pain from fx 2001. Medication controlled anxiety. PT-OP-B Current Condition Start: 10/19/21 18:46 Freq: Status: Active Protocol: Document 10/21/21 09:03 LRN (Rec: 10/21/21 16:30 LRN [id number]) Current Condition History of Current Condition Onset Date 2006 Current Complaints Chronic constant R ankle pain limiting function History of Current Condition Initial fx of R Talus and Lateral Malleolus in 2001 with 3 total pins with what sounds like Open reduction and external fixation. Pt had pins removed but didn't feel he had return to prior painfree function. In 2005 he had bone spurs removed with good relief until return of pain in 2006. He has had chronic R ankle pain, but is starting to limit his ability to squat and walk and he is now reporting recent onset of L ankle pain. He has had 7 days of limiting pain after squatting activity. Prior Treatments and Tests Xray 10/11/21: Ankle mortise normally aligned. 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 2005 Bone spurs removed in R ankle. Injections of collagen and sugar mix that the pt states didn't make a big difference. Future Testing and Treatments Planned None. Treatment Goals Patient/Caregiver Goals Pt goal: to decrease pain (3/ 10) with gait and not have lingering pain with squatting. Pt agreeable to a goal of no pain at rest and being placed on a home exercise program. Prior Functional Status Baseline Function- ADL's Independent Baseline Function- Mobility Independent Baseline Function- Work/School Pain with [place]. Baseline Function- Recreation/Hobbies Not a runner. 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 Able to crawl around boats to assess. Current Functional Impairments (Reported) Functional Limitations- ADL's Limited in ability to squat Functional Limitations- Mobility/Gait Decreased walking tolerance Functional Limitations- Work/School Limited with ability to squat and crawl around boats due to R ankle pain. R ankle pain constant. 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 PT-OP-D Balance Start: 10/19/21 18:46 Freq: Status: Active Protocol: Document 10/21/21 09:03 LRN (Rec: 10/21/21 16:30 LRN [id number]) Balance Tests Single Limb Standing Single Limb- Right 60 (hands across chest, barefoot) Single Limb- Left 40 (hands across chest, barefoot) PT-OP-G Mobility & Gait Start: 10/19/21 18:46 Freq: Status: Active Protocol: Document 10/21/21 09:03 LRN (Rec: 10/21/21 16:30 LRN [id number]) OP Gait Assessment Gait Gait Assistance Required: Independent Able to Maintain Weight Bearing Status Yes During Gait Assistive Devices Assistive Device None PT-OP-H Neuro Start: 10/19/21 18:46 Freq: Status: Active Protocol: Document 10/21/21 09:03 LRN (Rec: 10/21/21 16:30 LRN [id number]) Sensation Evaluation Gross Sensation Gross Sensation WNL Muscle Tone Tone Assessment R ankle dorsiflexors Flexor Tone Description Moderate Hypertonicity PT-OP-J Posture/Palpation/Skin Start: 10/19/21 18:46 Freq: Status: Active Protocol: Document 10/21/21 09:03 LRN (Rec: 10/21/21 16:30 LRN [id number]) Posture Evaluation Position Standing Head/C-Spine Posture Forward Head L-Spine Posture Increased Lordosis Pelvis Posture (L) Rotated Anterior Knee Posture (R) Genu Recurvatum Ankle/Foot Posture (R) Dorsiflexed,(L) Pronated,( R) Pronated,(L) Calcaneal Inversion,(R) Calcaneal Inversion Foot Arch (R) Medium Arch,(L) Low Arch Comments Posture Comments Well developed calves bilaterally. Moderately larger R ankle jt compared to L ankle. PT-OP-K Range of Motion Start: 10/19/21 18:46 Freq: Status: Active Protocol: Document 10/21/21 09:03 LRN (Rec: 10/21/21 16:30 LRN [id number]) Knee Goniometric Range of Motion Knee Right Knee ROM WFL No Patient Position Supine Hyper-Extension Active 4 Left Knee ROM WFL Yes Patient Position Supine Hyper-Extension Active 2 Ankle and Foot Goniometric Range of Motion Ankle and Foot Right Active Ankle/Foot ROM WFL No Testing Position Supine Dorsiflexion with Knee Extended 7 Plantarflexion 66 Inversion 20 Eversion 17 Left Active Ankle/Foot ROM WFL Yes Testing Position Supine Dorsiflexion with Knee Extended 5 Plantarflexion 65 Inversion 20 Eversion 20 PT-OP-L Special Tests Start: 10/19/21 18:46 Freq: Status: Active Protocol: Document 10/21/21 09:03 LRN (Rec: 10/21/21 16:38 LRN [id number]) Special Tests Foot/Ankle Special Tests Anterior Draw Test Results R ankle: Negative for pain Comments Hyper mobility noted. PT-OP-M Strength Start: 10/19/21 18:46 Freq: Status: Active Protocol: Document 10/21/21 09:03 LRN (Rec: 10/21/21 16:30 LRN [id number]) Knee Strength Knee Manual Muscle Testing Right Flexion (S2) 5 Normal Extension (L3) 5 Normal Comments R knee pops with resisted knee extension. Left Flexion (S2) 5 Normal Extension (L3) 5 Normal Ankle/Foot Strength Ankle and Foot Manual Muscle Testing Right Dorsiflexion (L4) 5 Normal Plantarflexion (S1) 5 Normal Inversion 5 Normal Eversion (S1) 5 Normal Comments Pt demonstrates popping at R foot with stretch into inversion at ~Cuboid/ metatarsal joint. Left Dorsiflexion (L4) 5 Normal Plantarflexion (S1) 5 Normal Inversion 5 Normal Eversion (S1) 5 Normal PT-OP-Q Treatments Start: 10/19/21 18:46 Freq: Status: Active Protocol: Document 11/04/21 08:20 LRN (Rec: 11/04/21 09:04 LRN [id number]) Therapeutic Exercises Sitting Exercises Big toe/toe lifts Sitting Exercise Name Toe lifts Side bilateral Reps/Minutes 30x IV/EV Sitting Exercise Name Inversion/eversion Side bilateral Resistance lvl 4 TB Reps/Minutes x15 ea Comments I/S pt in other method of anchoring band w/opposite foot PF/DF Sitting Exercise Name platar flexion/dorsifelxion Side bilateral Resistance lvl 4 TB Reps/Minutes x15 ea Comments I/S pt in other method of anchoring band w/opposite foot Standing Exercises Big toe stretch Standing Exercise Name Leg against wall to normalize ankle motion with Big Toe ext stretch Side bilateral Reps/Minutes 10' Comments Cued in sitting, changed to standing. Extra time to for best positioning Toe raises Standing Exercise Name Toe raises off 4 step Side bilateral Reps/Minutes 40+ Soleus stretch Standing Exercise Name Standing and squat stretch Side bilateral Reps/Minutes 5' Gastroc stretch Standing Exercise Name Gastroc stretch, single and double Side bilateral Reps/Minutes 3' L, 1' R Arch Lifts Standing Exercise Name Quick & Long hold (10) Side right Reps/Minutes 10x Quick, 5x Long hold Heel raises Standing Exercise Name Heel raises off 6' Step Side bilateral Reps/Minutes x10 Self-Care/Home Management Treatment Education Patient Education Home Exercise Program Activities Self-Care/Home Management Activities Issued & reviewed HEP: ankle strengthening w/TB: DF, IV, EV and standing toe/heel raises w/instructions on stair step; ankle stretching: Gastrocnemius & Soleus. PT-OP-T Assessment and Plan Start: 10/19/21 18:46 Freq: Status: Active Protocol: Document 11/04/21 08:20 LRN (Rec: 11/04/21 09:04 LRN [id number]) Physical Therapy Assessment Goals Three Impairment Decreased function (difficulty squatting and walking due to pain) Impairment Pain with squatting lingering for a week with pain 7/10. Pain with walking rated 7/10. Ankle AROM )degrees): Short Term Goal (STG) Normalize R ankle AROM (in degrees: EV: 17 R, 20 L; DF 7 R, 5 L, PF 66 R, 65 L) STG Duration 12/06/21 [facility] Goal (LTG) Stabilize R ankle with improved ability to squat and walk with pain no greater than 3/10. (11/04/21: Pt has been walking property without ankle pain). LTG Duration 12/20/21 (11/04/21: MET for walking) Two Impairment R ankle pain (3-7/10) Short Term Goal (STG) Pt will have periods of no pain. (11/04/21: No pain with most daily activities, pain onset with squatting) STG Duration 12/06/21 (11/04/21: MET GOAL) Field Agent Goal (LTG) Decrease R ankle pain to no greater than 3/10. LTG Duration 12/20/21 One Impairment Lacks appropriate self care HEP Short Term Goal (STG) Pt educated in self care pain management techniques ( contrast baths, ice, compression wrapping) STG Duration 10/29/21 (10/27/21: MET GOAL) [facility] Goal (LTG) Pt will be independent with a self care HEP. LTG Duration 12/20/21 (11/02/21: Progressed) Progress Towards Goals Progress Comments Pt not having pain at ankle except with squatting. Pt has HEP of ankle strengthening. Assessment Summary Assessment Good understanding of HEP of ankle ex's. Pt tends to roll outward at the ankles with heel raises. Pt needed review of proper form for arch lifts . Pt may be hyper or hypo mobile at R anterior/posterior gliding at talocrural joint causing pain; further MWM assessment needed. Physical Therapy Plan Frequency and Duration Frequency of Treatment 2x/Week Plan of Care Start Date 10/21/21 Plan of Care End Date 12/20/21 Next Visit Focus/Plan Next Note Type Treatment Note Next Visit Plan Assess R ankle EV AROM ( compare to L ankle). Discuss focus of treatment on self half-way program due to insurance limits of deductible (5500)/pt financial concerns. Strengthen R ankle and improve ROM of R ankle EV, and L ankle PF/DF ROM (ankle IV norm is 35 deg's, pt has 20 deg's bilaterally, ?normal). Consider Guashon scaping of R lateral ankle to promote healing/stabilization, putting hold on US. US if needed and if not doing Guashon technique. STM: possible AUGUSTIN assessment. Standing posture training ( decr lordosis, decr hyper ext of R knee).
--- NOTE | 2021-11-09 17:42 | PT.OTN ---
Current Diagnoses Pain in right ankle and joints of right foot (11/09/21) Abnormal posture (11/09/21) Physical Therapy Treatment Note PT-OP-A Visit Information Start: 10/19/21 18:46 Freq: Status: Active Protocol: Document 11/09/21 08:16 LRN (Rec: 11/09/21 10:34 LRN [id number]) Out-Patient Physical Therapy Visit Information Visit Information Visit Type Treatment Note Visit Start Time 08:16 Visit Stop Time 09:07 Total Visit Minutes 51 Visit Number 5 Evaluation Information Evaluation Date 10/21/21 Precautions Precautions Chronic R ankle pain from fx 2001. Medication controlled anxiety. PT-OP-B Current Condition Start: 10/19/21 18:46 Freq: Status: Active Protocol: Document 10/21/21 09:03 LRN (Rec: 10/21/21 16:30 LRN [id number]) Current Condition History of Current Condition Onset Date 2006 Current Complaints Chronic constant R ankle pain limiting function History of Current Condition Initial fx of R Talus and Lateral Malleolus in 2001 with 3 total pins with what sounds like Open reduction and external fixation. Pt had pins removed but didn't feel he had return to prior painfree function. In 2005 he had bone spurs removed with good relief until return of pain in 2006. He has had chronic R ankle pain, but is starting to limit his ability to squat and walk and he is now reporting recent onset of L ankle pain. He has had 7 days of limiting pain after squatting activity. Prior Treatments and Tests Xray 10/11/21: Ankle mortise normally aligned. 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 2005 Bone spurs removed in R ankle. Injections of collagen and sugar mix that the pt states didn't make a big difference. Future Testing and Treatments Planned None. Treatment Goals Patient/Caregiver Goals Pt goal: to decrease pain (3/ 10) with gait and not have lingering pain with squatting. Pt agreeable to a goal of no pain at rest and being placed on a home exercise program. Prior Functional Status Baseline Function- ADL's Independent Baseline Function- Mobility Independent Baseline Function- Work/School Pain with standing [place]. Baseline Function- Recreation/Hobbies Not a runner. 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 Able to crawl around boats to assess. Current Functional Impairments (Reported) Functional Limitations- ADL's Limited in ability to squat Functional Limitations- Mobility/Gait Decreased walking tolerance Functional Limitations- Work/School Limited with ability to squat and crawl around boats due to R ankle pain. R ankle pain constant. 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 Both ankles feel tight after all the ankle ex off the stairs. Did some squatting yesterday and didn't feel as bad as it has. Didn't have pain after squatting that lasted the day, didn't hurt at all. PT-OP-D Balance Start: 10/19/21 18:46 Freq: Status: Active Protocol: Document 10/21/21 09:03 LRN (Rec: 10/21/21 16:30 LRN [id number]) Balance Tests Single Limb Standing Single Limb- Right 60 (hands across chest, barefoot) Single Limb- Left 40 (hands across chest, barefoot) PT-OP-G Mobility & Gait Start: 10/19/21 18:46 Freq: Status: Active Protocol: Document 10/21/21 09:03 LRN (Rec: 10/21/21 16:30 LRN [id number]) OP Gait Assessment Gait Gait Assistance Required: Independent Able to Maintain Weight Bearing Status Yes During Gait Assistive Devices Assistive Device None PT-OP-H Neuro Start: 10/19/21 18:46 Freq: Status: Active Protocol: Document 10/21/21 09:03 LRN (Rec: 10/21/21 16:30 LRN [id number]) Sensation Evaluation Gross Sensation Gross Sensation WNL Muscle Tone Tone Assessment R ankle dorsiflexors Flexor Tone Description Moderate Hypertonicity PT-OP-J Posture/Palpation/Skin Start: 10/19/21 18:46 Freq: Status: Active Protocol: Document 10/21/21 09:03 LRN (Rec: 10/21/21 16:30 LRN [id number]) Posture Evaluation Position Standing Head/C-Spine Posture Forward Head L-Spine Posture Increased Lordosis Pelvis Posture (L) Rotated Anterior Knee Posture (R) Genu Recurvatum Ankle/Foot Posture (R) Dorsiflexed,(L) Pronated,( R) Pronated,(L) Calcaneal Inversion,(R) Calcaneal Inversion Foot Arch (R) Medium Arch,(L) Low Arch Comments Posture Comments Well developed calves bilaterally. Moderately larger R ankle jt compared to L ankle. PT-OP-K Range of Motion Start: 10/19/21 18:46 Freq: Status: Active Protocol: Document 11/09/21 08:16 LRN (Rec: 11/09/21 10:34 LRN [id number]) Ankle and Foot Goniometric Range of Motion Ankle and Foot Right Active Ankle/Foot ROM WFL No Testing Position Supine Dorsiflexion with Knee Flexed 10 Dorsiflexion with Knee Extended 10 Plantarflexion 63 Inversion 26 Eversion 20 Left Active Ankle/Foot ROM WFL Yes Testing Position Supine Dorsiflexion with Knee Flexed 8 Dorsiflexion with Knee Extended 7 Plantarflexion 65 Inversion 20 Eversion 20 PT-OP-L Special Tests Start: 10/19/21 18:46 Freq: Status: Active Protocol: Document 10/21/21 09:03 LRN (Rec: 10/21/21 16:38 LRN [id number]) Special Tests Foot/Ankle Special Tests Anterior Draw Test Results R ankle: Negative for pain Comments Hyper mobility noted. PT-OP-M Strength Start: 10/19/21 18:46 Freq: Status: Active Protocol: Document 10/21/21 09:03 LRN (Rec: 10/21/21 16:30 LRN [id number]) Knee Strength Knee Manual Muscle Testing Right Flexion (S2) 5 Normal Extension (L3) 5 Normal Comments R knee pops with resisted knee extension. Left Flexion (S2) 5 Normal Extension (L3) 5 Normal Ankle/Foot Strength Ankle and Foot Manual Muscle Testing Right Dorsiflexion (L4) 5 Normal Plantarflexion (S1) 5 Normal Inversion 5 Normal Eversion (S1) 5 Normal Comments Pt demonstrates popping at R foot with stretch into inversion at ~Cuboid/ metatarsal joint. Left Dorsiflexion (L4) 5 Normal Plantarflexion (S1) 5 Normal Inversion 5 Normal Eversion (S1) 5 Normal PT-OP-Q Treatments Start: 10/19/21 18:46 Freq: Status: Active Protocol: Document 11/09/21 08:16 LRN (Rec: 11/09/21 10:34 N [id number]) Cardio Equipment Treadmill Duration (Minutes) 13 Speed 2 Incline Incr deg per minute time to 10 max Other 10' fwd walk, 3' bkwd walk Therapeutic Exercises Standing Exercises Squat Standing Exercise Name Squat stretch Reps/Minutes 3' Soleus stretch Standing Exercise Name Standing and squat stretch Side bilateral Reps/Minutes 4' Gastroc stretch Standing Exercise Name Gastroc stretch, single and double Side bilateral Reps/Minutes 3' Manual Therapy Treatment Soft Tissue Mobilization Lateral R ankle Body Location Inferior to distal R Fibular head Mobilization Type Myofascial Release Intensity/Depth Superficial Body Position Sidelying Comments Guashon scraping along border of distal fibular head. Joint Mobilizations R Talocalcaneal Joint R Talocalcaneal jt Direction EV Grade II Body Position Sidelying Reps/Duration 4' Comments Stiff at joint. Stretch f/b active stretch. Talocrural Joint R Talocrural jt Direction EV Grade II Body Position Sidelying Reps/Duration 5' Comments f/b active assisted stretch Self-Care/Home Management Treatment Education Other Education Educated pt in post-guashon scraping care. PT-OP-T Assessment and Plan Start: 10/19/21 18:46 Freq: Status: Active Protocol: Document 11/09/21 08:16 LRN (Rec: 11/09/21 10:34 LRN [id number]) Physical Therapy Assessment Goals Three Impairment Decreased function (difficulty squatting and walking due to pain) Impairment Pain with squatting lingering for a week with pain 7/10. Pain with walking rated 7/10. Ankle AROM (degrees): Short Term Goal (STG) Normalize R ankle AROM ( initial R ankle AROM in degrees: EV: 17 R, 20 L; DF 7 R, 5 L, PF 66 R, 65 L). (11/09/21: Ankle AROM: EV 20 bilaterally; DF w/knee extended: 10 R, 7 L; DF w/knee flexed: 10 R, 8 L; PF: 63 R, 65 L). STG Duration 12/06/21 (11/09/21: MET GOAL, except greater mobility with DF) Food Selector Goal (LTG) Stabilize R ankle with improved ability to squat and walk with pain no greater than 3/10. (11/04/21: Pt has been walking property without ankle pain). (11/09/21: 1x squat without lingering pain the past few days and no pain with squatting after treatment). LTG Duration 12/20/21 (11/09/21: MET GOAL) Two Impairment R ankle pain (3-7/10) Short Term Goal (STG) Pt will have periods of no pain. (11/04/21: No pain with most daily activities, pain onset with squatting) STG Duration 12/06/21 (11/04/21: MET GOAL) Food Selector Goal (LTG) Decrease R ankle pain to no greater than 3/10. (11/09/21: Past 4 days pain at R ankle is 2/10.) LTG Duration 12/20/21 (11/09/21: MET GOAL) One Impairment Lacks appropriate self care HEP Short Term Goal (STG) Pt educated in self care pain management techniques ( contrast baths, ice, compression wrapping) STG Duration 10/29/21 (10/27/21: MET GOAL) [facility] Goal (LTG) Pt will be independent with a self care HEP. LTG Duration 12/20/21 (11/09/21: MET GOAL) Progress Towards Goals Progress Comments Pt R ankle pain has been decreased to daily max of 2/10 . He is able to squat without lingering pain and R ankle ROM is mostly symmetrical to the L ankle except increased mobility is demonstrated on the R with ankle DF. Assessment Summary Assessment He is able to squat x 1 without lingering pain as his ankle strength improves. Tightness is present with GS complex with increased strengthening of toe/heel raises on step. Pt had no complaints with Guashon scraping and felt stiffness relief with EV stretch to Calcaneous. Pt was able to squat at end of treatment without pain. Pt feels confident with that he is ready to be placed on his home program since his ankle is feeling good and he can squat without lingering pain. Physical Therapy Plan Discharge Physical Therapy Discharge Reasons Goals Met Discharge Comments Pt made very good progress in a short time. He is expected to improve if he can avoid overstretching his R ankle, maintain ankle strength, and support his plantar arch with a shoe insert. Thank you for your referral.
== END 2021-11-12 09:01 ==
LOC: PHYS 08:15
PROVIDERS: Family Provider Family Medicine; PCP Family Medicine; Referring Provider Family Medicine; Visit Provider Family Medicine
DX: M25.571 Pain in right ankle and joints of right foot (principal); R29.3 Abnormal posture
CPT/HCPCS: 97110; 97116; 97140; 97162; 97535

== ENCOUNTER → 2024-01-11 08:47 | Outpatient (CLI) | payer SELFPAY ==
[2024-01-11 10:20] LABS: Alanine Aminotransferase 23 IU/L (<50); Albumin 4.3 g/dL (3.5-5.0); Albumin Globulin Ratio 1.6 (1.0-2.8); Alkaline Phosphatase 61 U/L (38-126); Aspartate Aminotransferase 30 IU/L (17-59); BUN Creatinine Ratio 17.3 (6-22); Bilirubin Total 0.6 mg/dL (0.2-1.3); Blood Urea Nitrogen 18 mg/dL (9-20); Carbon Dioxide 27 mmol/L (22-32); Chloride 106 mmol/L (98-107); Cholesterol 195 mg/dL (140-199); Estimated Glomerular Filt Rate > 60 mL/min (>60); Globulin 2.7 g/dL (1.7-4.1); Glucose 92 mg/dL (70-100); HDL Cholesterol 72 mg/dL (40-60); HEMOLYSIS < 15 (0-50); LDL Cholesterol Calculated 85 mg/dL (<100); Potassium 4.4 mmol/L (3.4-5.1); Sodium 140 mmol/L (137-145); Triglycerides 191 mg/dL (35-150)
== END ==
PROVIDERS: Family Provider Family Medicine; PCP Family Medicine; Referring Provider Family Medicine; Visit Provider Family Medicine
DX: E78.5 Hyperlipidemia, unspecified (principal)
CPT/HCPCS: 36415; 80053; 80061

== ENCOUNTER 2024-06-04 07:11 | Day surgery (SDC) | payer BC, SELFPAY ==
--- NOTE | 2024-06-04 | PATH_ITS ---
[facility] Accession Number: [id number] No. of containers..01 Tissue . 01 Material submitted: . colon - RANDOM COLON . 01 Diagnosis: RANDOM COLON: Colonic mucosa with no diagnostic alterations. No active inflammation, granulomas, dysplasia, or malignancy identified. No evidence of colitis. RUST 06/06/20241456 Local . 01 Electronically signed: . Ruslan Harris MD, Pathologist NPI- [id number] . 01 Gross description: . Received in formalin with two patient identifiers and random colon biopsies, are three chino soft tissue fragments all measuring 0.3 cm in greatest dimension. Submitted in cassette A1. ([id number]) /ZACHARY 06/06/20241456 Local . 01 Pathologist provided ICD-10: Z12.11 . 01 CPT . 901831 Specimen Comment: A courtesy copy of this report has been sent to [phone] Performed at: [address] [id number], [place], [place] [id number] MD Ruslan Harris MD Phone: [phone]
[2024-06-04] MEDS: LACTATED RINGERS 1,000 ML 42 ML IV (07:35)
[2024-06-04 07:40] VITALS: BP 149/102; PULSE 93; RESP 17; TEMP 36.1; O2SAT 97
--- NOTE | 2024-06-04 08:05 | P.HP_ITS ---
History of Present Illness History of Present Illness Date Patient Seen: 06/04/24 Time Patient Seen: 08:05 Chief complaint: [facility] [place] Narrative: Reports he does have a family history for colon cancer, change in bowel habits. This will be his 1st colonoscopy [facility] Medical History Family hx of colon cancer Pterygium of left eye Encounter for surveillance of abnormal nevi Borderline hypertension Borderline hyperlipidemia Depression Right ankle pain Hypertension Well adult exam Well adult Allergic rhinitis Ankle pain (~2001) Chicken pox (~1988) Surgical History Anesthesia [place] teeth removed (~1999) Broken ankle (~2001) Family History Mother Breast cancer Social History Smoking Status: Never smoker alcohol intake: current Meds Home Medications and Allergies Home Medications Medication Instructions Recorded Confirmed Type sertraline 100 mg tablet 100 mg PO DAILY #90 tabs 01/05/24 06/04/24 Rx propylene glycol 0.6 % eye drops 1 drp EYE-LEFT BID #10 mL 04/09/24 06/04/24 Rx (Systane Balance) Allergies Allergy/AdvReac Type Severity Reaction Status Date / Time No Known Drug Allergies Allergy Verified 06/04/24 07:41 Review of Systems Review of Systems ROS: Yes All systems reviewed with the patient and are negative except as otherwise documented Exam Vital Signs (past 8 hours): - 06/04/24 07:40 Temperature 96.9 F L Pulse Rate 93 H Respiratory Rate 17 Blood Pressure 149/102 H Pulse Oximetry 97 Oxygen Delivery Method Room Air Oxygen Delivery Method Room Air Const General: cooperative, healthy appearing and comfortable Nutritional Appearance: average body habitus HENMT Head: normocephalic and atraumatic Eyes General: appearance normal, both eyes and all related structures Neck Neck: trachea midline and No JVD Chest Chest: normal inspection of the chest Resp Effort & Inspection: normal respiratory effort and able to speak in complete sentences Cardio Rate: regular rate Rhythm: regular rhythm GI Palpation: soft Skin General: turgor normal and No atrophy Neuro General: patient alert, patient awake and patient oriented x3 Cognition: normal cognition Psych Appearance: grossly normal Mental Status: mental status grossly normal Affect: normal affect Judgment: judgment good Assessment & Plan Assessment & Plan narrative: Colonoscopy for change in bowel habits and a distant family history for colon cancer. Plan: Colonoscopy with anesthesia Time-Based Coding :: [TOTAL MINUTES] spent with patient and on the chart (including review of chart, obtaining history, exam, reviewing outside data, placing orders, documenting exam and treatment plan, and counseling patient) on [DATE].
--- NOTE | 2024-06-04 08:13 | PM.OP.COLON ---
Operative Date/Time/Diagnoses Date of procedure: 06/04/24 Time of procedure: 08:13 Pre-op diagnosis: Change in bowel habit, distal family history for colon cancer Post-op diagnosis: same Procedure & Clinicians Study performed: colonoscopy with anesthesia Same procedure as scheduled: Yes Indications: Change in bowel habits and a distal family history colon cancer Surgeon: Justina Castro Procedure Notes Procedure in detail: Preop diagnosis: Change in bowel habits Postop diagnosis: Same Operative procedure: Colonoscopy with cold forceps mucosal biopsies Surgeon: Carline Castro MD Findings: Normal-appearing colon. No diverticulosis, no polyps. Procedure: Patient placed in lateral position. Rectal exam performed showing normal tone no masses. Colonoscope inserted into the rectum and advanced to ileocecal valve with minimal difficulty. Insufflation extraction of the scope and the above findings. Retroflex was included in the rectum Impression: No abnormalities found. No polyps. Random mucosal biopsies taken for history of diarrhea and change in bowel habits Plan: Repeat colonoscopy in 10 years unless otherwise indicated by change in clinical condition Specimen(s): none sent Complications: none Post-procedure Recommendations: Colonoscopy in 10 years Follow up: as needed Disposition: PACU
[2024-06-04 08:29] VITALS: BP 109/72; PULSE 75; RESP 10; TEMP 36.3; O2SAT 96
[2024-06-04 08:34] VITALS: BP 109/74; PULSE 74; RESP 10; O2SAT 97
[2024-06-04 08:39] VITALS: BP 112/74; PULSE 71; RESP 12; O2SAT 99
[2024-06-04 08:44] VITALS: BP 120/83; PULSE 72; RESP 12; TEMP 36.6; O2SAT 99
== END 2024-06-04 08:57 | disposition home or self-care (01) ==
PROVIDERS: Family Provider Family Medicine; PCP Family Medicine; Referring Provider Surgery; Visit Provider Surgery
PROC: 0DJD8ZZ Inspection of Lower Intestinal Tract, Via Natural or Artificial Opening Endoscopic (ICD-10-PCS; CPT 45378; principal; 2024-06-04 08:15)
DX: R19.4 Change in bowel habit (principal)
CPT/HCPCS: 45380; J2704

== ENCOUNTER → 2024-11-15 07:55 | Outpatient (CLI) | payer BC, SELFPAY ==
--- NOTE | 2024-11-15 07:56 | DI.CT.S_ITS ---
PROCEDURE: CT SINUS SCREEN WO CON INDICATIONS: CHRONIC PANSINUSITIS,NASAL OBST,FACIAL PRESSURE TECHNIQUE: Noncontrast 3.0 mm axial images acquired from the frontal sinuses to the mid-sella, with coronal and sagittal reformats. For radiation dose reduction, the following was used: automated exposure control, adjustment of mA and/or kV according to patient size. COMPARISON: None. FINDINGS: Image quality: Excellent. Maxillary Sinuses: Significant mucous retention cysts can be seen within the maxillary sinuses, right larger than left. There is hguh-ut-gpiencki mucosal thickening seen on both sides, right worse than left. The superior medial garza of the maxillary sinuses are demineralized. Ethmoid Air Cells: There is mild to moderate mucosal thickening within the ethmoid air cells. There is demineralization of the ethmoid air cell septations. Sphenoid Sinuses: No bony remodeling or destruction. Minimal mucosal thickening is seen anteriorly. Frontal Sinuses: No bony remodeling or destruction. Moderate mucosal thickening is seen within the inferior medial frontal sinuses. Ostiomeatal Complexes: The ostiomeatal complexes are patent, yet they are constitutionally narrowed, with bilateral Aman cells. The ostiomeatal complexes are further narrowed by soft tissue thickening, with near complete opacification of the left ostiomeatal complex. The ostiomeatal complexes are demineralized. Miscellaneous: Visualized intra-orbital contents are normal. Left-sided deep bullosa can be seen. There is mild rightward nasal septal deviation. IMPRESSION: Multifocal paranasal sinus disease can be seen. Narrowed ostiomeatal complexes, with the left ostiomeatal complex nearly completely occluded by soft tissue thickening. Areas of bony demineralization are seen, which are consistent with chronic sinusitis. Dictated by: Camilo Lynn M.D. on 11/15/2024 at 9:56 Approved by: Camilo Lynn M.D. on 11/15/2024 at 9:58
== END ==
PROVIDERS: Family Provider Family Medicine; PCP Family Medicine; Referring Provider Otolaryngology; Visit Provider Otolaryngology
DX: J32.4 Chronic pansinusitis (principal); J34.89 Other specified disorders of nose and nasal sinuses; R44.8 Other symptoms and signs involving general sensations and perceptions; J34.2 Deviated nasal septum; J34.3 Hypertrophy of nasal turbinates
CPT/HCPCS: 70486

== ENCOUNTER 2025-04-18 12:52 | Emergency (ER) | payer BC, SELFPAY ==
[2025-04-18 13:02] VITALS: BP 115/72; PULSE 70; RESP 16; TEMP 37; O2SAT 99; BMI 25.5
[2025-04-18 13:09] VITALS: PULSE 85
--- NOTE | 2025-04-18 13:10 | DI.RAD.S_ITS ---
PROCEDURE: XR ELBOW LT 2V INDICATIONS: Fall from horse, L shoulder, upper arm, L rib pain. TECHNIQUE: 2 views of the elbow were acquired. COMPARISON: None. FINDINGS: Limited rotated views of the left elbow demonstrate no gross radiographic evidence of fracture line, dislocation or abnormal fat pad elevation to suggest elbow joint effusion or hemarthrosis. IMPRESSION: No gross radiographic evidence of acute abnormality. If symptoms persist or worsen, or there is high clinical suspicion of left elbow abnormality, repeat plain films, CT or MRI could be performed. Dictated by: Hussein Wilkerson M.D. on 04/18/2025 at 14:14 Approved by: Hussein Wilkerson M.D. on 04/18/2025 at 14:33
--- NOTE | 2025-04-18 13:10 | DI.RAD.S_ITS ---
PROCEDURE: XR HUMERUS LT 2V INDICATIONS: Fall from horse, L shoulder, upper arm, L rib pain. TECHNIQUE: 2 views of the humerus were acquired. COMPARISON: None. FINDINGS: Moderately comminuted transverse fracture left humerus mid diaphysis with up to 1.5 cm offset of the fracture fragments. No radiographic evidence of high attenuation soft tissue foreign body. IMPRESSION: Left humerus fracture Dictated by: Hussein Wilkerson M.D. on 04/18/2025 at 14:33 Approved by: Hussein Wilkerson M.D. on 04/18/2025 at 14:39
--- NOTE | 2025-04-18 13:10 | DI.RAD.S_ITS ---
PROCEDURE: XR CHEST 1V INDICATIONS: Fall from horse, L shoulder, upper arm, L rib pain. TECHNIQUE: 1 view of the chest were acquired. COMPARISON: None. FINDINGS / IMPRESSION: Mild bibasilar subsegmental atelectasis some of which may be related to expiratory result. Cardiopericardial silhouette and pulmonary vasculature within normal limits. No pneumothorax, no pleural effusion, no lobar consolidation. If symptoms persist or worsen, or there is high clinical suspicion of thoracic abnormality, CT chest could be performed. Dictated by: Hussein Wilkerosn M.D. on 04/18/2025 at 13:54 Approved by: Hussein Wilkerson M.D. on 04/18/2025 at 13:57
--- NOTE | 2025-04-18 13:10 | DI.RAD.S_ITS ---
PROCEDURE: XR SHOULDER LT MIN 2V INDICATIONS: Fall from horse, L shoulder, upper arm, L rib pain. TECHNIQUE: Two views of the shoulder were acquired. COMPARISON: None. FINDINGS: Comminuted transverse fracture left humerus mid diaphysis. Left glenohumeral and acromioclavicular joints within normal limits. No radiographic evidence of left clavicle fracture or dislocation, no high attenuation foreign body. IMPRESSION: Left humerus fracture. Dictated by: Hussein Wilkerson M.D. on 04/18/2025 at 14:39 Approved by: Hussein Wilkerson M.D. on 04/18/2025 at 14:40
[2025-04-18] MEDS: MORPHINE 4 MG/ML INJ IM (15:21)
[2025-04-18] MEDS: ONDANSETRON 4 MG ODT SL (15:21)
[2025-04-18] MEDS: HYDROMORPHONE 1 MG INJ IM ×2 (16:21→17:05)
[2025-04-18 17:09] VITALS: BP 135/78; PULSE 78; PULSE 85; RESP 18; TEMP 36.9; O2SAT 98
--- NOTE | 2025-04-18 17:58 | ED_ITS ---
HPI - Trauma General Chief Complaint: Extremity Injury, Upper Stated Complaint: Fell of horse, hurt his left arm Time Seen by Provider: 04/18/25 14:52 Source: patient Mode of arrival: Family Vehicle History of Present Illness HPI narrative: Pleasant 39-year-old man brought to the ER because he fell off a horse and started having left arm pain. He denies any numbness tingling or weakness/paralysis. He denies any loss of consciousness, headache, neck pain, back pain or any other areas of pain. He has no other concerns or complaints at this time. Related Data Previous Rx's ?Medication ?Instructions ?Recorded propylene glycol 0.6 % eye drops 1 drp EYE-LEFT BID #1 0 mL 04/09/24 (Systane Balance) sertraline 100 mg tablet 100 mg PO DAILY #30 tabs 07/03 oxycodone-acetaminophen 5 mg-325 1 tab PO Q4H PRN pain #18 tabs 04/18/25 mg tablet Allergies Allergy/AdvReac Type Severity Reaction Status Date / Time No Known Drug Allergies Allergy Verified 04/18/25 13:09 Patient History Medical History Family hx of colon cancer Pterygium of left eye Encounter for surveillance of abnormal nevi Borderline hypertension Borderline hyperlipidemia Depression Right ankle pain Hypertension Well adult exam Well adult Allergic rhinitis Ankle pain (~2001) Chicken pox (~1988) Surgical History Anesthesia [place] teeth removed (~1999) Broken ankle (~2001) Family History Mother Breast cancer Social History alcohol intake: current alcohol intake frequency: a few times a week Exam Initial Vital Signs Initial Vital Signs: Vital Signs Temperature 98.6 F 04/18/25 13:02 Pulse Rate 70 04/18/25 13:02 Respiratory Rate 16 04/18/25 13:02 Blood Pressure 115/72 04/18/25 13:02 Pulse Oximetry 99 04/18/25 13:02 Oxygen Delivery Method Room Air 04/18/25 13:02 Const General: No acute distress and No ill appearing Nutritional Appearance: average body habitus HENMT Head: normal to inspection, normocephalic, atraumatic, No Chen's sign, No contusion, No hematoma, No laceration, No raccoon eyes and No scalp lesion Ears: hearing grossly normal bilaterally and TM's normal bilaterally Face and sinus: normal facial exam and no tenderness Mouth: No mouth trauma Eyes EOM: EOM intact bilaterally Neck Neck: normal visual inspection and No tender Chest Chest: normal inspection of the chest, normal palpation of entire chest wall, No crepitus and No tenderness Resp Effort & Inspection: normal respiratory effort Auscultation: clear to auscultation bilaterally Cardio Rate: regular rate Rhythm: regular rhythm Heart Sounds: S1 normal and S2 normal GI Inspection: normal to inspection Palpation: soft and No tender Auscultation: normal bowel sounds Back/Spine/Pelvis Back: normal to inspection and No back tenderness Cervical Spine: No cervical spinal tenderness and No step off deformity Thoracic/Lumbar Spine: thoracic and lumbar spine normal to inspection, No thoracic spinal tenderness and No lumbar spinal tenderness Skin General: no rashes or lesions noted Neuro General: patient alert, patient awake and patient oriented x3 Cranial Nerves: CN's II-XI intact bilaterally Motor: muscle tone normal throughout Extrem Other: Significant swelling of the right upper extremity. The right hand is n eurovascularly intact before and after splinting. Course Course Course Narrative: Patient seen and examined upon arrival in the ER. X-ray confirmed a displaced comminuted humeral fracture. This was discussed with the orthopedic surgeon Dr. Stein who advised that the patient be splinted and follow up with him as an outpatient. The patient was splinted and remained neurovascularly intact after splinting. His pain was well controlled after multiple doses of Dilaudid and morphine. Orders Ordered: ED Orders 04/18/25 13:10 XR chest 1V Stat XR elbow LT 2V Stat XR humerus LT 2V Stat XR shoulder LT 2+ views Stat Discontinued Medications Hydromorphone HCl (Hydromorphone 1 Mg Inj) 1 mg IM NOW ONE Stop: 04/18/25 16:15 Last Admin: 04/18/25 16:21 Dose: 1 mg Documented By: Hydromorphone HCl (Hydromorphone 1 Mg Inj) 1 mg IM NOW ONE Stop: 04/18/25 17:03 Last Admin: 04/18/25 17:05 Dose: 1 mg Documented By: Morphine Sulfate (Morphine 4 Mg/Ml Inj) 4 mg IM NOW ONE Stop: 04/18/25 15:14 Last Admin: 04/18/25 15:21 Dose: 4 mg Documented By: Ondansetron HCl (Ondansetron 4 Mg Odt) 4 mg SL NOW ONE Stop: 04/18/25 15:14 Last Admin: 04/18/25 15:21 Dose: 4 mg Documented By: Vital Signs Vital signs: Vital Signs - 8 hr 04/18/25 13:02 04/18/25 13:09 04/18/25 17:09 Temperature 98.6 F Pulse Rate 70 Pulse Rate [Left Radial] 85 78 Respiratory Rate 16 Blood Pressure 115/72 Pulse Oximetry 99 Oxygen Delivery Method Room Air 04/18/25 17:09 Temperature 98.5 F Pulse Rate 85 Pulse Rate [Left Radial] Respiratory Rate 18 Blood Pressure 135/78 Pulse Oximetry 98 Oxygen Delivery Method Room Air MDM - Trauma Differential Diagnosis Differential diagnosis: Likely other (Fracture, neurovascular injury) Discharge Plan Departure Patient Disposition: Home Clinical Impression: Fracture of upper extremity Instructions: DI for Fracture Activity Restrictions/Additional Instructions: Return to the hospital for any change or worsening in her condition such as [id number] pain or numbness tingling or weakness. Otherwise, follow up with Orthopedic surgery as soon as possible. Prescriptions: New oxycodone-acetaminophen 5-325 mg tablet 1 tab PO Q4H PRN (Reason: pain) Qty: 18 0RF Rx Instructions: Dont take more than 4000mg of total tylenol daily No Action Systane Balance 0.6 % drops 1 drp EYE-LEFT BID Qty: 10 0RF sertraline 100 mg tablet 100 mg PO DAILY Qty: 30 0RF Rx Instructions: No refills until visit scheduled Referrals: Mana Rios MD [Primary Care Provider, Family Practice] - As soon as possible Brayan Coyle MD [Physician, Orthopedic Surgery] - As soon as possible Stand Alone Forms: Patient Portal/API
[2025-04-18] MEDS: OXYCODONE/ACETAMINOPHEN 5/325 TABLET 1 TAB PO (18:15)
[2025-04-18 18:21] VITALS: BP 135/78; PULSE 66; RESP 19; TEMP 36.9; O2SAT 99
== END 2025-04-18 18:20 | disposition home or self-care (01) ==
PROVIDERS: Emergency Provider Emergency Medicine; Family Provider Family Medicine; PCP Family Medicine
DX: S42.352A Displaced comminuted fracture of shaft of humerus, left arm, initial encounter for closed fracture (principal); V80.010A Animal-rider injured by fall from or being thrown from horse in noncollision accident, initial encounter
CPT/HCPCS: 29105; 71045; 73030; 73060; 73070; 96372; 99284; J1171; J2270